=== PATIENT | female | born 1990 | race Caucasian/White ===

== ENCOUNTER 2016-11-21 10:19 | Emergency (ER) | payer MEDICAID ==
[~2016-11-21] VITALS: Ht 165.1 cm; Wt 78.5 kg
[2016-11-21 10:24] VITALS: BP 156/86
--- NOTE | 2016-11-21 10:31 | NUR ---
Patient ambulated to bed 02.
--- NOTE | 2016-11-21 10:45 | NUR ---
Dr. Wheeler/ Georgi (pa) evaluating patient at bedside.
--- NOTE | 2016-11-21 10:45 | NUR ---
26/F C/O PT PRESENTS TO ER W/C/O L CHEST PAIN SINCE LAST NOC AND LLQ PAIN. PT DENIES ANY MEDICAL HX. DENIES FEVER/N/V/D. URINE CUP PROVIDED FOR SAMPLE.
[2016-11-21] MEDS ORDERED: HYDROcodone/APAP 5/325 MG 1 TAB TAB PO ONE (11:00)
[2016-11-21] MEDS ORDERED: KETOROLAC 30 MG/ML VIAL IM ONE (11:00)
--- NOTE | 2016-11-21 11:12 | NUR ---
XRAY AT BEDSIDE.
[2016-11-21 12:20] VITALS: BP 117/83
--- NOTE | 2016-11-21 12:20 | NUR ---
Patient discharged with v/s stable. Written and verbal after care instructions given and explained. Patient alert, oriented and verbalized understanding of instructions. Ambulatory with steady gait. All questions addressed prior to discharge. ID band removed. Patient advised to follow up with PMD. Rx of ROBAXIN,MOTRIN given. Patient educated on indication of medication including possible reaction and side effects. Opportunity to ask questions provided and answered.
== END 2016-11-21 12:20 | disposition home or self-care (01) ==
LOC: MED 10:23
DX: R07.89 Other chest pain (principal); R10.12 Left upper quadrant pain; K59.00 Constipation, unspecified
CPT/HCPCS: 36415; 71010; 80053; 81002; 81025; 83690; 84484; 85025; 85379; 93005; 96372; 99285; J1885

== ENCOUNTER 2016-12-10 11:36 | Emergency (ER) | payer MEDICAID ==
[~2016-12-10] VITALS: Ht 165.1 cm; Wt 78.0 kg
[2016-12-10 11:52] VITALS: BP 134/91
--- NOTE | 2016-12-10 13:54 | NUR ---
PT TAKEN TO BED 7.
--- NOTE | 2016-12-10 14:01 | NUR ---
patient presents with SOB x 1 month, per patient she was seen a month ago in our ER and was diagnosed with muscle strain. Patient states she continues to have the SOB, however now has a cough with yellow to green sputum and is now having chest pain with the cough. Patient states she has nausea no vomitting, loose stool this morning. patient sitting in room comfortably
[2016-12-10 15:59] VITALS: BP 122/80
--- NOTE | 2016-12-10 16:00 | NUR ---
Patient discharged with v/s stable. Written and verbal after care instructions given and explained. Patient alert, oriented and verbalized understanding of instructions. Ambulatory with steady gait. All questions addressed prior to discharge. ID band removed. Patient advised to follow up with PMD. Rx of prednisone, and ibuprofen given. Patient educated on indication of medication including possible reaction and side effects. Opportunity to ask questions provided and answered.
== END 2016-12-10 16:00 | disposition home or self-care (01) ==
LOC: MED 11:36
DX: R07.89 Other chest pain (principal); R19.7 Diarrhea, unspecified; R59.1 Generalized enlarged lymph nodes
CPT/HCPCS: 71020; 81001; 81025; 93005; 99285; Q0092

== ENCOUNTER 2017-11-12 12:28 | Emergency (ER) | payer MEDICAID ==
[~2017-11-12] VITALS: Ht 165.1 cm; Wt 80.3 kg
[2017-11-12 12:40] VITALS: BP 152/93
--- NOTE | 2017-11-12 14:05 | NUR ---
PT TAKEN TO OF3.
--- NOTE | 2017-11-12 14:29 | NUR ---
Pt moved to bed 12.
--- NOTE | 2017-11-12 14:35 | NUR ---
27F BIB SELF C/O VAGINAL SPOTTING X 3 DAYS. PT STATES SPOTTING STARTED "LIGHT PINK" AND IS NOW "THIN, MEDIUM PINK"; PT STATES NO CLOTTS AT THIS TIME; PT C/O BL LOWER ABDOMINAL PAIN, PRESSURE, NON-RADIATING, 5/10 AT THIS TIME; ABDOMEN SOFT, NON-TENDER, ACTIVE BOWEL SOUNDS X 4 QUADRANTS; PT STATES NO N/V/D AT THIS TIME; PT STATES 11 WEEKS, 5 DAYS AT THIS TIME; PT AA&OX4, BL LUNG SOUNDS CLEAR, RR EVEN/UNLABORED, SKIN IS WARM/DRY/INTACT AT THIS TIME; EVEN AND STEADY GAIT; PT RESTING IN BED WITH HOB ELEVATED AND IN LOWEST POSITION; POSITIONED FOR COMFORT; ER MD MADE AWARE OF STATUS. WILL CONTINUE TO MONITOR.
--- NOTE | 2017-11-12 15:02 | NUR ---
US AT BEDSIDE.
[2017-11-12 15:35] LABS: BILIRUBIN,URINE NEGATIVE (NEGATIVE); BLOOD, URINE TRACE-I (NEGATIVE); COLOR,URINE ORANGE (YELLOW); LEUKOCYTE ESTERASE ,URINE NEGATIVE (NEGATIVE); NITRITE, URINE NEGATIVE (NEGATIVE); UGLUCOSE NEGATIVE (NEGATIVE)
[2017-11-12 15:37] LABS: APPEARANCE,URINE CLEAR (CLEAR)
[2017-11-12 15:41] LABS: BASOPHILS # (AUTO) 0.1 K/uL (0.00-0.22); BASOPHILS % (AUTO) 1.3 % (0.0-2.0); EOSINOPHILS # (AUTO) 0.1 K/uL (0-0.4); EOSINOPHILS % (AUTO) 1.3 % (0.0-4.0); HEMATOCRIT 41.3 % (36-48); HEMOGLOBIN 13.9 g/dL (12.0-16.0); LYMPHOCYTES % (AUTO) 18.5 % (20.5-51.1); MEAN CORPUSCULAR HEMOGLOBIN 31 pg (27-31); MEAN CORPUSCULAR HGB CONC 34 g/dL (33-37); MEAN CORPUSCULAR VOLUME 92 fL (80-94); MONOCYTES # (AUTO) 0.6 K/uL (0.8-1.0); MONOCYTES % (AUTO) 5.5 % (1.7-9.3); NEUTROPHILS # (AUTO) 7.9 K/uL (1.8-7.7); NEUTROPHILS % (AUTO) 73.4 % (42.2-75.2); PLATELET COUNT (AUTO) 325 K/uL (140-450); RED BLOOD CELL COUNT(AUTO) 4.49 MIL/uL (4.20-5.40); RED CELL DISTRIBUTION WIDTH 12.6 % (11.6-13.7); WHITE BLOOD COUNT (AUTO) 10.7 K/uL (4.8-10.8)
[2017-11-12 15:48] LABS: RBC,URINE 0-5 (RARE) /HPF (0-5); WBC,URINE NONE SEEN /HPF (0-5)
[2017-11-12 15:48] LABS: ANION GAP 13.9 (8-16); CARBON DIOXIDE 26.1 mmol/L (21-32); CREATININE 0.5 mg/dL (0.6-1.3)
[2017-11-12 15:51] LABS: PROTHROMBIN TIME 10.4 secs (10.8-13.4)
[2017-11-12 15:55] LABS: ALBUMIN 3.3 g/dL (3.4-5.0); TOTAL BILIRUBIN 0.2 mg/dL (0.0-1.0)
--- NOTE | 2017-11-12 16:10 | NUR ---
PT APPEARS TO BE RESTING COMFORTABLY IN BED; RR EVEN/UNLABORE; POSITIONED FOR COMFORT; WILL CONTINUE TO MONITOR.
[2017-11-12 17:22] VITALS: BP 148/86
--- NOTE | 2017-11-12 17:22 | NUR ---
Patient discharged with v/s stable. Written and verbal after care instructions given and explained. Patient verbalized understanding. Ambulatory with steady gait. All questions addressed prior to discharge. Advised to follow up with PMD.
== END 2017-11-12 17:22 | disposition home or self-care (01) ==
LOC: MED 12:28
DX: O20.0 Threatened abortion (principal); Z3A.11 11 weeks gestation of pregnancy
CPT/HCPCS: 36415; 76801; 80053; 81001; 81025; 84702; 85025; 85610; 85730; 86900; 86901; 87086; 99285; Q0092

== ENCOUNTER 2022-04-15 14:12 | Emergency (ER) | payer MEDICAID, OTHER ==
[~2022-04-15] VITALS: Ht 165.1 cm; Wt 83.9 kg
[2022-04-15 14:43] VITALS: BP 139/83
--- NOTE | 2022-04-15 17:04 | NUR ---
pt ambulated to bed 09.
[2022-04-15] MEDS ORDERED: KETOROLAC 60 MG/2 ML VIAL IM ONE (17:40)
[2022-04-15] MEDS ORDERED: IBUP-2213 PO (17:53)
--- NOTE | 2022-04-15 18:00 | NUR ---
31 y/o female, pt presents to ed with c/o cp for 2 days, radiates from chest to left shoulder.denies nausea, vomiting, diarrhea. skin is pink/warm/dry. a&o x4 with even and steady gait. lungs clear bl, heart rate even and regular. pt denies dysuria, hematuria, urinary frequency or retention, or anyone sick in the household with the same symptoms. pt denies any fever, sob, or cough at this time. pt states pain is 6/10 at this time. patient positioned for comfort. hob elevated. bed down. ermd made aware of pt. pmh: denies nka med: denies
[2022-04-15 18:44] VITALS: BP 139/83
--- NOTE | 2022-04-15 18:46 | NUR ---
Patient discharged with v/s stable. Written and verbal after care instructions given and explained. Patient alert, oriented and verbalized understanding of instructions. Ambulatory with steady gait to car with . All questions addressed prior to discharge. ID band removed. Patient advised to follow up with PMD. Rx of ibuprofen (sent) given. Patient educated on indication of medication including possible reaction and side effects. Opportunity to ask questions provided and answered.
== END 2022-04-15 18:46 | disposition home or self-care (01) ==
LOC: MED 14:12
DX: R07.89 Other chest pain (principal)
CPT/HCPCS: 71045; 93005; 96372; 99283; J1885

== ENCOUNTER 2023-10-06 16:19 | Emergency (ER) | payer OTHER ==
[~2023-10-06] VITALS: Ht 162.6 cm; Wt 83.9 kg
[~2023-10-06 16:19] MED LIST: IBUP-2213 PO
[2023-10-06 16:47] VITALS: BP 142/83; PULSE 81; RESP 16; TEMP 98; O2SAT 100
[2023-10-06 17:40] LABS: BASOPHILS # (AUTO) 0.1 K/uL (0.00-0.22); BASOPHILS % (AUTO) 0.7 % (0.0-2.0); EOSINOPHILS # (AUTO) 0.2 K/uL (0-0.4); HEMATOCRIT 39.4 % (36-48); HEMOGLOBIN 13.8 g/dL (12.0-16.0); LYMPHOCYTES # (AUTO) 2.3 K/uL (2.5-16.5); LYMPHOCYTES % (AUTO) 21.5 % (20.5-51.1); MEAN CORPUSCULAR HEMOGLOBIN 31 pg (27-31); MEAN CORPUSCULAR HGB CONC 35 g/dL (33-37); MEAN CORPUSCULAR VOLUME 88.5 fL (80-94); MONOCYTES # (AUTO) 0.6 K/uL (0.8-1.0); MONOCYTES % (AUTO) 5.1 % (1.7-9.3); NEUTROPHILS # (AUTO) 7.6 K/uL (1.8-7.7); NEUTROPHILS % (AUTO) 70.7 % (42.2-75.2); PLATELET COUNT (AUTO) 401 K/uL (140-450); RED BLOOD CELL COUNT(AUTO) 4.44 MIL/uL (4.20-5.40); RED CELL DISTRIBUTION WIDTH 13.8 % (11.6-13.7); WHITE BLOOD COUNT (AUTO) 10.7 K/uL (4.8-10.8)
[2023-10-06 17:48] LABS: ANION GAP 15.3 (8-16); CALCIUM 9.1 mg/dL (8.5-10.1); CARBON DIOXIDE 25.4 mmol/L (21-32); CREATININE 1.1 mg/dL (0.6-1.3); POTASSIUM 3.7 mmol/L (3.5-5.1)
[2023-10-06 17:52] LABS: INR 0.95 (0.8-1.2); PARTIAL THROMBOPLASTIN TIME 24.8 secs (22-35.6)
[2023-10-06 20:31] VITALS: BP 118/71; PULSE 78; RESP 16; TEMP 98; O2SAT 100
== END 2023-10-06 20:31 | disposition home or self-care (01) ==
LOC: MED 16:19
DX: R20.2 Paresthesia of skin (principal); F43.9 Reaction to severe stress, unspecified; E78.5 Hyperlipidemia, unspecified; Z79.899 Other long term (current) drug therapy
CPT/HCPCS: 36415; 70450; 71045; 80048; 81025; 84484; 85025; 85610; 85730; 93005; 99285